=== PATIENT | male | born 1990 | race Caucasian/White ===

== ENCOUNTER 2020-10-20 11:12 | Emergency (ER) | payer OTHER ==
[2020-10-20] MEDS ORDERED: NAPROXEN500 MG PO (14:20)
[2020-10-20] MEDS ORDERED: PREDNISONE50 MG PO (14:20)
== END 2020-10-20 14:36 | disposition home or self-care (01) ==
LOC: ER1 11:12
DX: M54.42 Lumbago with sciatica, left side (principal)
CPT/HCPCS: 99283; J1885; J2930